=== PATIENT | female | born 1995 | race African-American/Black ===

== ENCOUNTER 2017-02-22 10:31 | Emergency (ER) | payer SELFPAY ==
[2017-02-22 10:36] VITALS: BP 113/63
--- NOTE | 2017-02-22 10:40 | ER Document Report ---
HPI - HPI Patient complains to provider of: left ear pain Onset: This morning Onset/Duration: Sudden Quality of pain: Throbbing Pain Level: 4 Context: 21-year-old female complaining of left ear pain that woke her up at 2:30 in the morning. She had some drainage. No recent upper respiratory infection. No fever. No external ear swelling. No known drug allergies. Associated Symptoms: None Exacerbated by: Denies, Movement - External ear, Other Relieved by: Denies Similar symptoms previously: No Recently seen / treated by doctor: No - ROS ROS below otherwise negative: Yes Systems Reviewed and Negative: Yes All other systems reviewed and negative - DERM Skin Color: Normal Past Medical History - General Information source: Patient - Social History Smoking Status: Never Smoker Frequency of alcohol use: None Drug Abuse: None Lives with: Family Family History: Reviewed & Not Pertinent Patient has suicidal ideation: No Patient has homicidal ideation: No - Medical History Medical History: Negative Renal/ Medical History: Denies: Hx Peritoneal Dialysis Surgical Hx: Negative Vertical Provider Document - CONSTITUTIONAL Agree With Documented VS: Yes Exam Limitations: No Limitations - INFECTION CONTROL TRAVEL OUTSIDE OF THE [place] IN LAST 30 DAYS: No - HEENT HEENT: Normocephalic. negative: Conjuctival Injection, Tympanic Membrane Red, Tympanic Membrane Bulging Notes: Left ear jack frame tender and red with inflamed tissue at 10 and 9:00 next to the TM no fluid behind the TM. With movement of the tragus and pinna. No adenopathy or external ear swelling. - NECK Neck: Supple. negative: Lymphadenopathy-Left, Lymphadenopathy-Right - RESPIRATORY Respiratory: Breath Sounds Normal, No Respiratory Distress O2 Sat by Pulse Oximetry: 99 - CARDIOVASCULAR Cardiovascular: Regular Rate, Regular Rhythm Course - Vital Signs Vital signs: Temp Pulse Resp BP Pulse Ox 98.2 F 64 18 113/63 99 02/22/17 10:35 02/22/17 10:35 02/22/17 10:35 02/22/17 10:35 02/22/17 10:35 Discharge - Discharge Clinical Impression: Left otitis externa Condition: Good Disposition: HOME, SELF-CARE Instructions: Otitis Externa ([facility]), Use of Ear Drops ([facility]), Warm Packs ([facility]), Acetaminophen, Use of Qqcr-Nwu-Molmyap Ibuprofen ([facility]), ENT Additional Instructions: warm compress to er if increased pain, swelling, fever, any concerns see ent doctor if persists Please complete the patient satisfaction survey if you get one, and return it.. If you do not receive a survey, then you can go to the [facility] website, [email or web address] and place your comments about your very good care. Thank you very much. It was a pleasure being your medical provider today. Prescriptions: Gentamicin Sulfate [Garamycin 0.3% Oph Soln 5 ml] 2 drop Q4H #1 bottle
== END 2017-02-22 11:47 | disposition home or self-care (01) ==
LOC: ER 10:31
DX: H60.92 Unspecified otitis externa, left ear (principal); H92.02 Otalgia, left ear
CPT/HCPCS: 99282

== ENCOUNTER 2020-01-28 00:43 | Inpatient (IN) | payer BC, MEDICAID ==
[2020-01-28 01:17] LABS: APPEARANCE,URINE CLEAR; BILIRUBIN,URINE NEGATIVE (NEGATIVE); COLOR,URINE STRAW; GLUCOSE, URINE 150 mg/dL (NEGATIVE); KETONES,URINE NEGATIVE (NEGATIVE); LEUKOCYTE ESTERASE,URINE NEGATIVE (NEGATIVE); NITRITE,URINE NEGATIVE (NEGATIVE); PROTEIN,URINE 30 mg/dL (NEGATIVE); URINE SPECIFIC GRAVITY 1.011; UROBILINOGEN,URINE NEGATIVE mg/dL (<2.0)
[2020-01-28] MEDS ORDERED: PENICILLIN G POTASSIUM 5,000,000 UNIT in DEXTROSE 5%-WATER 100 ML IV ONE (01:30)
[2020-01-28] MEDS ORDERED: RINGERS SOLUTION,LACTATED 1,000 ML IV PRN (01:30)
[2020-01-28] MEDS ORDERED: RINGERS SOLUTION,LACTATED 1,000 ML IV ONE (01:30)
[2020-01-28] MEDS ORDERED: BETAMET ACET/BETAMET NA INJ 6 MG/1 ML ONE (01:34)
[2020-01-28] MEDS ORDERED: BETAMET ACET/BETAMET NA INJ 6 MG/1 ML IM ONE (01:34)
[2020-01-28 01:38] LABS: URINE AMPHETAMINES SCREEN NEGATIVE; URINE BARBITURATES SCREEN NEGATIVE; URINE BENZODIAZEPINES SCREEN NEGATIVE; URINE COCAINE SCREEN NEGATIVE; URINE MARIJUANA (THC) SCREEN NEGATIVE; URINE METHADONE SCREEN NEGATIVE; URINE PHENCYCLIDINE SCREEN NEGATIVE
[2020-01-28] MEDS ORDERED: OXYTOCIN/0.9 % SODIUM CHLORIDE 30 UNIT/500 ML RTUINJ ONE (01:41)
[2020-01-28] MEDS ORDERED: OXYTOCIN 10 UNIT/ML VIAL ONE (01:41)
[2020-01-28] MEDS ORDERED: LIDOCAINE 1% INJ-PF (10 MG/ML) 30 ML SDV ONE (01:41)
[2020-01-28] MEDS ORDERED: MISOPROSTOL 0.2 MG TABLET ONE (01:41)
[2020-01-28] MEDS ORDERED: PENICILLIN G-K 5 MILLION UNIT VIAL ONE (01:44)
[2020-01-28] MEDS ORDERED: ONDANSETRON HCL INJ/PF 4 MG/2 ML SDV IV ONE (01:51)
[2020-01-28] MEDS ORDERED: ONDANSETRON HCL INJ/PF 4 MG/2 ML SDV ONE (01:52)
--- NOTE | 2020-01-28 01:56 | Admission Physical ---
Datetime Report Generated by CPN: 01/28/2020 01:56 CURRENT ADMISSION Chief Complaint: Uterine Contractions; Suspected Ruptured Membranes Admit Impression : , Intrauterine ; Active Labor; Ruptured Membranes Admit Plan: Admit to Unit; Initiate Labor Protocol ALLERGIES Medication Allergies: No Medication Allergies: No Known Allergies (02/22/2017) Latex: No Latex Allergies OBSTETRICAL HISTORY EDC: 03/02/2020 00:00 : 1 Para: 0 (Annotations: Data stored by [facility] on behalf of user) Gestational Diabetes: Yes Rh Sensitization: No Incompetent Cervix: No JOELLEN: No Infertility: No ART Treatment: No Uterine Anomaly: No IUGR: No Hx Previous C/S: No Macrosomia: No Hx Loss/Stillborn: No PIH: No Hx : No Placenta Previa/Abruption: No Depression/PP Depression: No PTL/PROM: No Post Hemorrhage: No Current Procedures: Ultrasound Obstetrical History Comments: G1 -current SEE RECORDS Alcohol: No Marijuana : No Cocaine: No Other Illicit Drugs: No Cigarettes: Never Smoker. [id number] MEDICAL HISTORY Diabetes: Yes Blood Transfusion: No Pulmonary Disease (Asthma, TB): No Breast Disease: No Hypertension: No Quill Layer Surgery: No Heart Disease: No Hosp/Surgery: No Autoimmune Disorder: No Anesthetic Complications: No Kidney Disease: No Abnormal Pap Smear: No Neuro/Epilepsy: No Psychiatric Disorders: No Other Medical Diseases: No Hepatitis/Liver Disease: No Significant Family History: No Varicosities/Phlebitis: No Trauma/Violence : No Thyroid Dysfunction: No INFECTIOUS HISTORY Gonorrhea: No Genital Herpes: No Chlamydia: Yes Tuberculosis: No Syphilis: No Hepatitis: No HIV/AIDS Exposure: No Rash or Viral Illness: Yes HPV: No Infectious History Comments: HX of Chlamydia and Trich with Negative HELENA on 09/2018 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); Herpes Zoster (shingles) with intermittent flares PHYSICAL EXAM General: Normal HEENT: Normal Neurologic: Normal Thyroid: Deferred Heart: Normal Lungs: Normal Breast: Deferred Back: Normal Abdomen: Normal Genitourinary Exam: Normal Extremities: Normal DTRs: Normal Pelvic Type: Adequate Vital Signs: Reviewed VAGINAL EXAM Dilatation: 4 Effacement: 90 Station: 0 Contraction Comments: q 2-3 MEMBRANES Membranes: Ruptured Amniotic Fluid Color: Clear FETUS A EGA: 35.1 Monitoring: External US FHR- Baseline: 145 Variability: Moderate 6-25bpm Accelerations: 10X10 Decelerations: None FHR Category: Category I Presentation: Vertex Admit Comment: 24yo at 35+1ega presents for PPROM at midnight. She reports ctx started at 2300 and her water broke approx 1 hour later. H/o shingles. She also had a suspicious lesion (but painless) on right vulva at [facility] and HSV titers were done - HSV II positive. No lesions today and no prodrome. Possible throacic defect/abd defect on US at [facility] - not seen by MFM. BMI 35 and HBA1c at [facility] HELENA was 6 - A2GDM on Glyburide 7.5mg. H/o shingles - last shingles in 10/2019. +Chlam and + trich on pap 09/12 - good HELENA on 09/2018. Will get wet prep and GC/CHlam today. BMZ now. GBS culture done. PCN for GBS culture. She desires epidural. PLANS FOR LABOR AND DELIVERY Labor and Delivery: None Pain Management: Epidural Feeding Preference: Breast Benefit of Breast Feed Discussed: Yes Circumcision: N/A INFORMED CONSENT Informed Consent Obtained: Vaginal Delivery; Risks, Benefits and Alternatives Discussed Signature: with User ID: [email or web address]
[2020-01-28 02:01] LABS: ABSOLUTE EOSINOPHILS # (AUTO) 0.1 10^3/uL (0.0-0.6); ABSOLUTE LYMPHOCYTES (AUTO) 2.7 10^3/uL (0.5-4.7); ABSOLUTE MONOCYTES (AUTO) 0.9 10^3/uL (0.1-1.4); ABSOLUTE NEUT (AUTO) 4.4 10^3/uL (1.7-8.2); BASOPHILS % (AUTO) 0.3 % (0-2); EOSINOPHILS % (AUTO) 0.9 % (0-6); HEMATOCRIT 36.8 % (36.0-47.0); HEMOGLOBIN 12.3 g/dL (12.0-15.5); LYMPHOCYTES % (AUTO) 33.4 % (13-45); MEAN CORPUSCULAR HEMOGLOBIN 25.7 pg (27.0-33.4); MEAN CORPUSCULAR HGB CONC 33.5 g/dL (32.0-36.0); MEAN CORPUSCULAR VOLUME 77 fl (80-97); MONOCYTES % (AUTO) 11.6 % (3-13); PLATELET COUNT 326 10^3/uL (150-450); RED BLOOD COUNT 4.81 10^6/uL (3.72-5.28); RED CELL DISTRIBUTION WIDTH 15.5 % (11.5-14.0); SEGMENTED NEUTROPHILS % (AUTO) 53.8 % (42-78); TOTAL CELLS COUNTED % (AUTO) 100 %; WHITE BLOOD COUNT 8.2 10^3/uL (4.0-10.5)
[2020-01-28 02:04] LABS: RBCS (WET MOUNT) FEW RBCS SEEN; T.VAGINALIS (WET MOUNT) NO TRICHOMONAS SEEN; WBCS (WET MOUNT) FEW WBCS SEEN; YEAST (WET MOUNT) NO YEAST SEEN
[2020-01-28] MEDS ORDERED: FENTANYL/BUPIVACAINE/NS/PF 300 MCG/150 ML RTUINJ EPI ONE (02:10)
[2020-01-28] MEDS ORDERED: EPHEDRINE SULFATE INJ 50 MG/1 ML AMPULE ONE (02:10)
[2020-01-28] MEDS ORDERED: BUPIVACAINE HCL 0.25 % INJ/PF (2.5 MG/1 ML) 30 ML VIAL ONE (02:10)
[2020-01-28 03:30] LABS: CHLAM PCR NOT DETECTED (NOT DETECT)
[2020-01-28] MEDS ORDERED: PROMETHAZINE HCL 25 MG SUPP.RECT PR PRN (06:13)
[2020-01-28] MEDS ORDERED: MEASLES,MUMPS&RUBELLA VACC/PF 0.5 ML VIAL SUBCUT PRN ×2 (06:13→11:00)
[2020-01-28] MEDS ORDERED: ZOLPIDEM TARTRATE 5 MG TABLET PO PRN (06:13)
[2020-01-28] MEDS ORDERED: ACETAMINOPHEN WITH CODEINE #3 TABLET PO PRN ×2 (06:13)
[2020-01-28] MEDS ORDERED: DIPH/PERTUSS(ACELL)/TETANUS VAC/PF 0.5 ML SYR (>=10YO) IM PRN ×2 (06:13→10:30)
[2020-01-28] MEDS ORDERED: DIPHENHYDRAMINE HCL 25 MG CAPSULE PO PRN (06:13)
[2020-01-28] MEDS ORDERED: MAGNESIUM HYDROXIDE SUSP 30 ML UDCUP PO PRN (06:13)
[2020-01-28] MEDS ORDERED: PSEUDOEPHEDRINE HCL 30 MG TABLET PO PRN (06:13)
[2020-01-28] MEDS ORDERED: NA PHOS,M-B/NA PHOS,DI-BA (ADULT) 133 ML ENEMA PR PRN (06:13)
[2020-01-28] MEDS ORDERED: PROMETHAZINE HCL INJ 25 MG/1 ML VIAL IV PRN ×2 (06:13→11:00)
[2020-01-28] MEDS ORDERED: OXYTOCIN/0.9 % SODIUM CHLORIDE 30 UNIT/500 ML RTUINJ IV PRN (06:13)
[2020-01-28] MEDS ORDERED: GLYCERIN/WITCH HAZEL LEAF 1 EACH MED..WIPE TP PRN (06:13)
[2020-01-28] MEDS ORDERED: BENZOCAINE/MENTHOL AEROSOL SPRAY 56 ML TOP PRN (06:13)
[2020-01-28] MEDS ORDERED: DIBUCAINE 1% OINTMENT 28 GM TP PRN (06:13)
[2020-01-28] MEDS ORDERED: PROMETHAZINE HCL 25 MG TABLET PO PRN (06:13)
[2020-01-28] MEDS ORDERED: ACETAMINOPHEN 325 MG TABLET PO PRN (06:13)
--- NOTE | 2020-01-28 07:25 | Warning Signs in Babies ---
VOD Warning Signs Datetime Report Generated by [facility]: 01/28/2020 07:25 VOD#[id number] -Warning Signs in Babies: Viewed with Parent(s)/Family (01/28/2020 00:47:João Sutton RN)
--- NOTE | 2020-01-28 07:26 | Warning Signs in Babies ---
VOD Warning Signs Datetime Report Generated by N: 01/28/2020 07:26 VOD#[id number] -Warning Signs in Babies: Viewed with Parent(s)/Family (01/28/2020 07:25:João Sutton RN)
[2020-01-28] MEDS ORDERED: DOCUSATE SODIUM 100 MG CAPSULE ONE (09:32)
[2020-01-28] MEDS ORDERED: FERROUS SULFATE 325 MG TABLET PO ONE (09:32)
[2020-01-28] MEDS ORDERED: PRENATAL VITAMIN W DHA CAPSULE PO ONE (09:32)
[2020-01-28] MEDS ORDERED: SENNOSIDES/DOCUSATE 8.6-50 MG 1 EACH TABLET ONE (09:32)
[2020-01-28] MEDS ORDERED: FAMOTIDINE 20 MG TABLET ONE (09:33)
[2020-01-28] MEDS: FERROUS SULFATE 325 MG TABLET PO SCH ×2 (09:40→17:58)
[2020-01-28] MEDS: SENNOSIDES/DOCUSATE 8.6-50 MG 1 EACH TABLET PO SCH (09:40)
[2020-01-28] MEDS: DOCUSATE SODIUM 100 MG CAPSULE PO SCH ×2 (09:40→17:58)
[2020-01-28] MEDS: FAMOTIDINE 20 MG TABLET PO SCH ×2 (09:41→22:47)
[2020-01-28] MEDS: PRENATAL VITAMIN W DHA CAPSULE PO SCH (09:44)
[2020-01-28] MEDS: PENICILLIN G POTASSIUM 2,500,000 UNIT in DEXTROSE 5%-WATER 50 ML IV SCH ×2 (10:09→10:11)
--- NOTE | 2020-01-28 10:25 | Delivery Summary ---
Del Sum A-C Datetime Report Generated by CPN: 01/28/2020 10:24 DELIVERY PERSONNEL DELIVERY PERSONNEL: [id number] Delivery Doctor:: Becka Sun MD SOLUTIONS MARKET CONSULTANT:: Jeremias Wolfe SOLUTIONS MARKET CONSULTANT Labor and Delivery Nurse:: Ana M Lagos RNcushion assembler Nurse:: Gloria Palmer RNC Nursery Nurse:: Daisha Maldonado RN Primer Inserting Machine Adjuster/IT SECURITY SPECIALIST: Anne Marie Dyson, ST MATERNAL INFORMATION Delivery Anesthesia: Epidural Medications After Delivery: Pitocin 30 Units in 500ml NS/D5W Estimated Blood Loss (ml): 0 Delivery QBL: 0 Maternal Complications: None Provider Comments: VFI delivered in [place]IAN presentation with compound left hand. Shoulders and body delivered without difficulty. cord doubly clamped and cut. no nuchal cord. Placenta delivered intact spontaneously. FF at U. 1st degree vaginal laceration repaired with good hemostasis. Good hemostasis. Mother and baby stable upon provider leaving the room. LABOR SUMMARY EDC: 03/02/2020 00:00 No. Babies in Womb: 1 Attempted: No Labor Anesthesia: Epidural LABOR INFORMATION Reason for Induction: Not Applicable Onset of Labor: 01/28/2020 01:39 Complete Dilatation: 01/28/2020 05:29 Oxytocin: N/A Group B Beta Strep: unknown Antibiotics # of Doses: 1 Antibiotics Time of Last Dose: 0153 Name of Antibiotic Given: penicillin G Steroids Given: Partial Course; < 24 Hours before Delivery Reason Steroids Not Administered: Not Applicable MEMBRANES Membranes Rupture Method: Spontaneous Rupture of Membranes: 01/27/2020 23:52 Length of Rupture (hr): 6.13 Amniotic Fluid Color: Clear Amniotic Fluid Amount: Small Amniotic Fluid Odor: Normal STAGES OF LABOR Stage 1 hr: 3 Stage 1 min: 50 Stage 2 hr: 0 Stage 2 min: 31 Stage 3 hr: 0 Stage 3 min: 4 Total Time in Labor hr: 4 Total Time in Labor min: 25 VAGINAL DELIVERY Episiotomy: None Laceration #1: Vaginal Laceration Extension #1: First Degree Laceration Repair: Yes Sponge Count Correct: Yes Sharps Count Correct: Yes CSECTION DELIVERY Primary Indication: N/A Secondary Indication: N/A CSection Incidence: N/A Labor: N/A Elective: N/A CSection Incision: N/A BABY A INFORMATION Delivery Date/Time: 01/28/2020 06:00 Method of Delivery: Vaginal Nurse Controlled Delivery: No Born in Route : No : N/A Forceps: N/A Vacuum Extraction: N/A Shoulder Dystocia : No PRESENTATION/POSITION BABY A Presentation: Cephalic Cephalic Presentation: Vertex Vertex Position: Right Occipital Anterior Breech Presentation: N/A PLACENTA INFORMATION BABY A Placenta Delivery Time : 01/28/2020 06:04 Placenta Method of Delivery: Spontaneous Placenta Status: Delivered SCORES BABY A Heart Rate 1 min: >100 bpm Resp Effort 1 min: Good Cry Reflex Irritability 1 min: Cough or Sneeze or Pulls Away Muscle Tone 1 min: Active Motion Color 1 min: Blue/Pale Resuscitation Effort 1 min: Tactile Stimulation SCORE 1 MIN: 8 Heart Rate 5 min: >100 bpm Resp Effort 5 min: Good Cry Reflex Irritability 5 min: Cough or Sneeze or Pulls Away Muscle Tone 5 min: Active Motion Color 5 min: Body [place], Extremities Blue Resuscitation Effort 5 min: Tactile Stimulation SCORE 5 MIN: 9 INFORMATION BABY A Gestational Age at Delivery: 35.1 Gestational Status: Late - 34- 36.6 Weeks Outcome : Liveborn Condition : Stable Sex: Female IDENTIFICATION BABY A Verification Date/Time: 01/28/2020 06:13 ID Band Number: [id number] Mother's Name Verified: Yes Infant RN Verifying Infant: E. Jilek, RN and M. Lagos, RN WEIGHT/LENGTH BABY A Birthweight (gm): 2484 Infant Weight (lb): 5 Weight (oz): 8 Length (in): 17.50 Infant Length (cm): 44.45 CORD INFORMATION BABY A No. Cord Vessels: 3 Nuchal Cord : N/A Nuchal Cord- Other: left compound hand Cord Blood Taken: Yes-For Eval (Mom's Blood Type - or O+) Infant Suction: None ASSESSMENT BABY A Infant Complications: None Physical Findings at Delivery: Other Physical Findings- Other: see initial nursery assessment Skin to Skin: Yes Skin to Skin Time (min): 60 Transferred To: Remains with Mother BABY B INFORMATION : N/A SIGNATURES Signature: with User ID: [email or web address]
[2020-01-28] MEDS: IBUPROFEN 800 MG TABLET PO SCH ×2 (14:21→22:46)
[2020-01-29] MEDS: IBUPROFEN 800 MG TABLET PO SCH ×3 (06:23→22:29)
[2020-01-29 07:47] LABS: HEMATOCRIT 35.7 % (36.0-47.0); HEMOGLOBIN 11.6 g/dL (12.0-15.5); MEAN CORPUSCULAR HEMOGLOBIN 25.2 pg (27.0-33.4); MEAN CORPUSCULAR HGB CONC 32.5 g/dL (32.0-36.0); MEAN CORPUSCULAR VOLUME 78 fl (80-97); PLATELET COUNT 315 10^3/uL (150-450); RED CELL DISTRIBUTION WIDTH 15.7 % (11.5-14.0); WHITE BLOOD COUNT 15.9 10^3/uL (4.0-10.5)
--- NOTE | 2020-01-29 10:28 | PDOC PROGRESS REPORT ---
Subjective-OB Progress Note for:: 01/29/20 - PP Day #1, doing well, UOB, voiding , breast and bottlefeeding, A negative, Rubella immune. Physical Exam (OB) Vital Signs: Temp Pulse Resp BP Pulse Ox 98.1 F 73 14 107/60 97 01/29/20 07:00 01/29/20 07:00 01/29/20 07:00 01/29/20 07:00 01/29/20 07:00 Intake & Output 01/28/20 01/29/20 01/30/20 06:59 06:59 06:59 Weight 91.4 kg - General General Appearance: Appears well, Alert In distress: None - PIH/Pre-Eclampsia DTR's: 1 + Clonus: Negative Headache: Absent Epigastric Pain: No Visual Changes: No - Lochia Lochia Amount: Scant < 10 ml Lochia Color: Rubra/Red - Abdomen Description: Soft, Round Hernia Present: No Fundal Description: Firm, Midline Fundal Height: u/u - u/2 - Respiratory Respiratory Status: No respiratory distress - Abdominal Distension: No distension Tenderness: Nontender - Genitourinary Genitourinary Note: voiding - Extremities Upper extremity: Normal inspection Lower extremities: Normal inspection - Neurological Cognition: Normal Orientation: AAOx4 - Psychological Associated symptoms: Normal affect, Normal mood - Skin Skin Temperature: Warm Skin Moisture: Dry Objective-Diagnostic Laboratory: 01/29/20 06:46 01/29/20 01/29/20 06:46 06:46 WBC 15.9 H RBC 4.60 Hgb 11.6 L Hct 35.7 L MCV 78 L MCH 25.2 L MCHC 32.5 RDW 15.7 H Plt Count 315 Blood Type A NEGATIVE Assessment and Plan(PN) - Assessment and Plan (1) Rh negative status during Qualifiers: Trimester: third trimester Qualified Code(s): O26.893 - Other specified related conditions, third trimester; Z67.91 - Unspecified blood type, Rh negative Is this a current diagnosis for this admission?: Yes (2) Gestational diabetes mellitus (GDM) controlled on oral hypoglycemic drug Qualifiers: Trimester: third trimester Qualified Code(s): O24.415 - Gestational diabetes mellitus in , controlled by oral hypoglycemic drugs Is this a current diagnosis for this admission?: Yes (3) Laceration, obstetrical, first degree Is this a current diagnosis for this admission?: Yes (4) premature rupture of membranes Qualifiers: PROM onset of labor timing: onset of labor more than 24 hours following rupture Qualified Code(s): O42.119 - premature rupture of membranes, onset of labor more than 24 hours following rupture, unspecified trimester Is this a current diagnosis for this admission?: Yes (5) Vaginal delivery Is this a current diagnosis for this admission?: Yes Plan:: routine PP orders, ambulation encouraged - Time Spent with Patient Time with patient: Less than 15 minutes Medications reviewed and adjusted accordingly: Yes - Disposition Within: within 24 hours
[2020-01-29] MEDS: PRENATAL VITAMIN W DHA CAPSULE PO SCH (10:37)
[2020-01-29] MEDS: SENNOSIDES/DOCUSATE 8.6-50 MG 1 EACH TABLET PO SCH (10:37)
[2020-01-29] MEDS: DOCUSATE SODIUM 100 MG CAPSULE PO SCH ×2 (10:37→17:34)
[2020-01-29] MEDS: FAMOTIDINE 20 MG TABLET PO SCH ×2 (10:37→22:29)
[2020-01-29] MEDS: FERROUS SULFATE 325 MG TABLET PO SCH ×2 (10:37→17:34)
[2020-01-30] MEDS: IBUPROFEN 800 MG TABLET PO SCH (05:43)
--- NOTE | 2020-01-30 09:24 | PDOC DISCHARGE SUMMARY ---
Impression - Admit/DC Date/PCP Admission Date/Primary Care Provider: 01/28/20 01:43 BARNEY HALL MD Discharge Date: 01/30/20 - Discharge Diagnosis (1) Gestational diabetes mellitus (GDM) controlled on oral hypoglycemic drug Is this a current diagnosis for this admission?: Yes (2) Laceration, obstetrical, first degree Is this a current diagnosis for this admission?: Yes (3) premature rupture of membranes Is this a current diagnosis for this admission?: Yes (4) Rh negative status during Is this a current diagnosis for this admission?: Yes (6) Vaginal delivery Is this a current diagnosis for this admission?: Yes - Additional Information Discharge Diet: Regular Discharge Activity: Balance Activity w/Rest, Pelvic Rest Referrals: BARNEY HALL MD [Primary Care Provider] - Prescriptions: Ibuprofen [Motrin 800 mg Tablet] 800 mg PO Q8HP PRN #60 tablet PRN Reason: Home Medications: Vit No.130/Iron/Folic [ Tablet] 1 each PO DAILY 01/28/20 Ibuprofen [Motrin 800 mg Tablet] 800 mg PO Q8HP PRN #60 tablet 01/30/20 Results Laboratory Results: WBC 15.9 10^3/uL (4.0-10.5) H 01/29/20 06:46 RBC 4.60 10^6/uL (3.72-5.28) 01/29/20 06:46 Hgb 11.6 g/dL (12.0-15.5) L 01/29/20 06:46 Hct 35.7 % (36.0-47.0) L 01/29/20 06:46 MCV 78 fl (80-97) L 01/29/20 06:46 MCH 25.2 pg (27.0-33.4) L 01/29/20 06:46 MCHC 32.5 g/dL (32.0-36.0) 01/29/20 06:46 RDW 15.7 % (11.5-14.0) H 01/29/20 06:46 Plt Count 315 10^3/uL (150-450) 01/29/20 06:46 Lymph % (Auto) 33.4 % (13-45) 01/28/20 01:45 [place] % (Auto) 11.6 % (3-13) 01/28/20 01:45 Eos % (Auto) 0.9 % (0-6) 01/28/20 01:45 Baso % (Auto) 0.3 % (0-2) 01/28/20 01:45 Absolute Neuts (auto) 4.4 10^3/uL (1.7-8.2) 01/28/20 01:45 Absolute Lymphs (auto) 2.7 10^3/uL (0.5-4.7) 01/28/20 01:45 Absolute Monos (auto) 0.9 10^3/uL (0.1-1.4) 01/28/20 01:45 Absolute Eos (auto) 0.1 10^3/uL (0.0-0.6) 01/28/20 01:45 Absolute Basos (auto) 0.0 10^3/uL (0.0-0.2) 01/28/20 01:45 Seg Neutrophils % 53.8 % (42-78) 01/28/20 01:45 Urine Color STRAW 01/28/20 00:57 Urine Appearance CLEAR 01/28/20 00:57 Urine pH 6.0 (5.0-9.0) 01/28/20 00:57 Ur Specific [place] 1.011 01/28/20 00:57 Urine Protein 30 mg/dL (NEGATIVE) H 01/28/20 00:57 Urine Glucose (UA) 150 mg/dL (NEGATIVE) H 01/28/20 00:57 Urine Ketones NEGATIVE mg/dL (NEGATIVE) 01/28/20 00:57 Urine Blood SMALL (NEGATIVE) H 01/28/20 00:57 Urine Nitrite NEGATIVE (NEGATIVE) 01/28/20 00:57 Urine Bilirubin NEGATIVE (NEGATIVE) 01/28/20 00:57 Urine Urobilinogen NEGATIVE mg/dL (<2.0) 01/28/20 00:57 Ur Leukocyte Esterase NEGATIVE (NEGATIVE) 01/28/20 00:57 Urine WBC (Auto) 1 /HPF 01/28/20 00:57 Urine RBC (Auto) 1 /HPF 01/28/20 00:57 Urine Bacteria (Auto) TRACE /HPF 01/28/20 00:57 Squamous Epi Cells Auto 2 /HPF 01/28/20 00:57 Urine Mucus (Auto) RARE /LPF 01/28/20 00:57 Urine Ascorbic Acid NEGATIVE (NEGATIVE) 01/28/20 00:57 Membranes Rupture POSITIVE (NEGATIVE) H 01/28/20 01:04 Trichomonas (Wet Prep) NO TRICHOMONAS SEEN 01/28/20 01:40 Vaginal WBC FEW WBCS SEEN 01/28/20 01:40 Vaginal RBC FEW RBCS SEEN 01/28/20 01:40 Vaginal Yeast NO YEAST SEEN 01/28/20 01:40 Urine Opiates Screen NEGATIVE 01/28/20 00:57 Urine Methadone Screen NEGATIVE 01/28/20 00:57 Ur Barbiturates Screen NEGATIVE 01/28/20 00:57 Ur Phencyclidine Scrn NEGATIVE 01/28/20 00:57 Ur Amphetamines Screen NEGATIVE 01/28/20 00:57 U Benzodiazepines Scrn NEGATIVE 01/28/20 00:57 Urine Cocaine Screen NEGATIVE 01/28/20 00:57 U Marijuana (THC) Screen NEGATIVE 01/28/20 00:57 RPR NONREACTIVE (NONREACTIVE) 01/28/20 01:45 Chlamydia DNA (PCR) NOT DETECTED (NOT DETECT) 01/28/20 01:40 N.gonorrhoeae DNA (PCR) NOT DETECTED (NOT DETECT) 01/28/20 01:40 Blood Type A NEGATIVE 01/29/20 06:46 Antibody Screen POSITIVE 01/28/20 01:45 Antibody Identification RHOGAM INDUCED ANTI-D 01/28/20 01:45 Screen NEGATIVE 01/29/20 06:46 Plan Plan of Treatment: follow up in 4 weeks at [facility] for post check
[2020-01-30] MEDS: DOCUSATE SODIUM 100 MG CAPSULE PO SCH (09:33)
[2020-01-30] MEDS: FAMOTIDINE 20 MG TABLET PO SCH (09:33)
[2020-01-30] MEDS: SENNOSIDES/DOCUSATE 8.6-50 MG 1 EACH TABLET PO SCH (09:33)
[2020-01-30] MEDS: FERROUS SULFATE 325 MG TABLET PO SCH (09:33)
[2020-01-30] MEDS: PRENATAL VITAMIN W DHA CAPSULE PO SCH (09:33)
[2020-01-30 10:16] VITALS: BP 107/60
== END 2020-01-30 13:22 | disposition home or self-care (01) | DRG 806 ==
LOC: LC 00:43 → LR 01:43 → 2S 10:03
PROVIDERS: ADMIT Student in an Organized Health Care Education/Training Program; ATTEND Student in an Organized Health Care Education/Training Program
PROC: 10E0XZZ Delivery of Products of Conception, External Approach (ICD-10-PCS; principal; 2020-01-28)
PROC: 0HQ9XZZ Repair Perineum Skin, External Approach (ICD-10-PCS; 2020-01-28)
PROC: 3E0234Z Introduction of Serum, Toxoid and Vaccine into Muscle, Percutaneous Approach (ICD-10-PCS; 2020-01-29)
DX: O42.913 Preterm premature rupture of membranes, unspecified as to length of time between rupture and onset of labor, third trimester (principal); O98.32 Other infections with a predominantly sexual mode of transmission complicating childbirth; Z37.0 Single live birth; O24.425 Gestational diabetes mellitus in childbirth, controlled by oral hypoglycemic drugs; O32.6XX0 Maternal care for compound presentation, not applicable or unspecified; O26.893 Other specified pregnancy related conditions, third trimester; A60.00 Herpesviral infection of urogenital system, unspecified; O70.0 First degree perineal laceration during delivery; Z3A.35 35 weeks gestation of pregnancy; Z86.19 Personal history of other infectious and parasitic diseases; Z67.11 Type A blood, Rh negative
CPT/HCPCS: 1967; 36415; 80307; 81001; 84112; 85025; 85027; 85461; 86592; 86850; 86870; 86900; 86901; 87081; 87210; 87491; 87591; 88307; 94760; J0702; J2405; J2540; J2590; J2790; J3010; J3490; J7060